=== PATIENT | female | born 1960 | race Caucasian/White ===

== ENCOUNTER → 2016-08-22 | Outpatient (CLI) | payer BC ==
--- NOTE | 2016-08-22 11:34 | KCIC ---
Bilateral digital screening mammograms with CAD: HISTORY Routine screening. COMPARISON Comparison is made to previous studies dated 07/07/2015 and 03/27/2013. FINDINGS Breast density category B. The skin and nipples show no abnormalities. No abnormal lymph nodes are seen in the axilla. The breast parenchyma shows scattered fibroglandular density. There are no dominant masses, suspicious calcifications or architectural distortions. IMPRESSION No evidence of malignancy. Recommend routine annual mammographic screening. This study was interpreted with the benefit of Computerized Aided Detection (CAD). Mammography is not 100% sensitive in detecting breast cancer. Therefore, a self breast exam and a clinical breast exam are very important. A negative mammogram does not negate a clinically suspicious finding and should not result in a delay in biopsying a clinically suspicious abnormality. BI-RADS category 1. Negative. This patient's information has been entered into a reminder system for the patient to be notified with the results of this examination and a target date for her next mammograms. Electronically signed by: Norma Connolly MD (Aug 22, 2016 11:33:02)
== END | disposition home or self-care (01) ==
LOC: KCIC MAMMO 10:39
PROVIDERS: ATTEND Family Medicine
DX: Z12.31 Encounter for screening mammogram for malignant neoplasm of breast (principal)
CPT/HCPCS: G0202; 77067

== ENCOUNTER → 2018-07-04 | Outpatient (CLI) | payer BC ==
--- NOTE | 2018-07-04 17:19 | KCIC ---
Bilateral digital screening mammograms: Reason for examination: Routine screening. Comparison is made to previous studies dated 08/22/2016 and 07/07/2015. Interpretation was made with the benefit of CAD. The skin and nipples show no abnormalities. No abnormal axillary lymph nodes are seen. The breast parenchyma shows scattered fibroglandular density. (Breast density: Category B.) There are no dominant masses, suspicious calcifications or architectural distortions. Impression: No evidence of malignancy. Recommend routine screening. BI-RADS Category 1: Negative. "Our facility is accredited by the [employer] Mammography Program." This patient's information has been entered into a reminder system for the patient to be notified with the results of her examination and a target date for the next mammogram. Electronically signed by: Piper Connolly MD (07/04/2018 5:15 PM) [id number]
== END | disposition home or self-care (01) ==
LOC: KCIC MAMMO 15:06
PROVIDERS: ATTEND Family Medicine
DX: Z12.31 Encounter for screening mammogram for malignant neoplasm of breast (principal)
CPT/HCPCS: 77067